=== PATIENT | female | born 1985 | race Hispanic/Latino ===

== ENCOUNTER 2018-02-13 20:13 | Emergency (ER) | payer OTHER ==
[2018-02-13] MEDS ORDERED: Sodium Chloride 0.9% 1,000 ML IV STA (21:18)
--- NOTE | 2018-02-13 21:41 | ED PDOC ---
HPI: SOB/CHF/COPD Time Seen by Provider: 02/13/18 20:35 Chief Complaint (Nursing): Shortness Of Breath Chief Complaint (Provider): Shortness Of Breath History Per: Patient History/Exam Limitations: no limitations Onset/Duration Of Symptoms: Days (x1 week) Additional Complaint(s): Patient is a 32 y/o female who presents to the ED complaining of shortness of breath for x1 week with associated pain and cough at end of inspiration. Pt states she had a panic attack earlier, but now she feels better. Patient additionally complains of chills, low fever, and body ache starting yesterday night. Patient reports taking Tylenol at 19:30. states she feels fine at this time. Past Medical History Reviewed: Historical Data, Nursing Documentation, Vital Signs Vital Signs: Last Vital Signs Temp 98.5 F 02/13/18 23:34 Pulse 90 02/13/18 23:34 Resp 16 02/13/18 23:34 BP 132/81 02/13/18 23:34 Pulse Ox 100 02/14/18 19:20 - Medical History PMH: Anxiety, Depression (tapering off of cymbalta), HTN (pre eclampsia) - Surgical History Surgical History: No Surg Hx - Family History Family History: States: Unknown Family Hx - Social History Current smoker - smoking cessation education provided: No Alcohol: None Drugs: Denies - Home Medications Home Medications: Ambulatory Orders Medication Instructions Recorded Albuterol HFA [Ventolin HFA 90 1 puff IH Q6 #1 inhaler 02/14/18 mcg/actuation (8 g)] Azithromycin [Z-Myron] 250 mg PO ASDIR #6 tab 02/14/18 - Allergies Allergies/Adverse Reactions: Allergies Allergy/AdvReac Type Severity Reaction Status Date / Time No Known Allergies Allergy Verified 02/13/18 20:24 Wells Criteria for PE - Wells Criteria for Pulmonary Embolism Clinical Signs and Symptoms of DVT: No P.E is #1 Diagnosis, or Equally Likely: No Heart Rate >100: No (initially was, now slowed down) Immobilization at least 3 days;Surgery previous 4 weeks: No Previous, objectively diagnosed PE or DVT: No Hemoptysis: No Malignancy w/treatment within 6 months, or palliative: No Total Score: 0 Review of Systems ROS Statement: Except As Marked, All Systems Reviewed And Found Negative Constitutional: Positive for: Fever (low), Chills Respiratory: Positive for: Cough, Shortness of Breath, Pleuritic Pain Musculoskeletal: Positive for: Back Pain (body ache) Physical Exam - Reviewed Nursing Documentation Reviewed: Yes Vital Signs Reviewed: Yes - Physical Exam Appears: Positive for: Non-toxic, No Acute Distress Head Exam: Positive for: ATRAUMATIC, NORMOCEPHALIC Skin: Positive for: Normal Color, Warm, Dry Eye Exam: Positive for: EOMI, Normal appearance, PERRL ENT: Positive for: Normal ENT Inspection Neck: Positive for: Normal, Painless ROM, Supple Cardiovascular/Chest: Positive for: Regular Rate, Rhythm. Negative for: Murmur Respiratory: Positive for: Normal Breath Sounds. Negative for: Respiratory Distress Gastrointestinal/Abdominal: Positive for: Normal Exam, Soft. Negative for: Tenderness Back: Positive for: Normal Inspection. Negative for: L CVA Tenderness, R CVA Tenderness Extremity: Positive for: Normal ROM. Negative for: Pedal Edema, Deformity Neurologic/Psych: Positive for: Alert, Oriented. Negative for: Motor/Sensory Deficits - Laboratory Results Result Diagrams: 02/13/18 21:55 02/13/18 21:55 - ECG O2 Sat by Pulse Oximetry: 100 (RA) Pulse Ox Interpretation: Normal Medical Decision Making Medical Decision Making: Time: 21:17 Initial Plan: body aches rule out flu, electrolyte abnormality CMP CBC w/ diff Chest x-ray Urine C&S Influenza A B Urinalysis 2315 Rapid flu negative. Labs reviewed and within normal limits. Chest x-ray shows no infiltrates. Patient with normalized pulse and states she is feeling much better. Patient to be discharged home. rpt pulse normal 3 am called pt back to inform her that she had bands in her blood. and needed to return for blood cultures, repeat bloodwork and possible admission. pt states she will return. ----- Scribe Attestation: Documented by Bello Sheets, acting as a scribe for Aracely Mendoza MD Provider Scribe Attestation: All medical record entries made by the Scribe were at my direction and personally dictated by me. I have reviewed the chart and agree that the record accurately reflects my personal performance of the history, physical exam, medical decision making, and the department course for this patient. I have also personally directed, reviewed, and agree with the discharge instructions and disposition. Disposition - Clinical Impression Clinical Impression: Body aches - Patient ED Disposition Is Patient to be Admitted: No Counseled Patient/Family Regarding: Studies Performed, Diagnosis, Need For Followup - Disposition Disposition: Routine/Home Disposition Time: 02:00 Condition: IMPROVED Additional Instructions: follow up with your primary doctor in 1-2 days return to the ED with any worsening or concerning symptoms Instructions: Generalized Weakness (DC) Forms: [employer] (M[place]ese)
[2018-02-13 22:02] LABS: BASO % 0.4 % (0.0-2.0); EOS % 0.3 % (0.0-4.0); HEMOGLOBIN 13.1 g/dL (12.0-16.0); LYMPH # 0.6 K/uL (1.0-4.3); LYMPH % 7.7 % (20.0-40.0); MEAN CELL VOLUME 88.7 fl (81.0-99.0); MEAN CORPUSCULAR HEMOGLOBIN 30.2 pg (27.0-31.0); MEAN CORPUSCULAR HGB CONC 34.1 g/dL (33.0-37.0); MEAN PLATELET VOLUME 9.1 fl (7.2-11.7); MONO # 0.4 K/uL (0.0-0.8); MONO % 5.7 % (0.0-10.0); NEUT # 6.4 K/uL (1.8-7.0); NEUT % 85.9 % (50.0-75.0); PLATELET COUNT 148 K/uL (130-400); RBC 4.34 Mil/uL (3.80-5.20); WHITE BLOOD COUNT 7.4 K/uL (4.8-10.8)
[2018-02-13 22:10] LABS: ALB/GLOB RATIO 1.5 (1.0-2.1); ALBUMIN 4.4 g/dL (3.5-5.0); ALT/SGPT 25 U/L (9-52); AST/SGOT 23 U/L (14-36); BLOOD UREA NITROGEN 14 mg/dl (7-17); CALCIUM 9.3 mg/dL (8.4-10.2); GFR AFRICAN-AMERICAN > 60; GFR NON-AFRICAN AMERICAN > 60
[2018-02-13 22:14] LABS: SQUAMOUS EPITHIAL < 1 /hpf (0-5); URINE BACTERIA RARE (<OCC); URINE BILIRUBIN NEGATIVE (NEGATIVE); URINE BLOOD NEGATIVE (NEGATIVE); URINE CLARITY CLEAR (Clear); URINE COLOR STRAW (YELLOW); URINE GLUCOSE (UA) NEG (Normal); URINE LEUKOCYTE ESTERASE NEG Leu/uL (Negative); URINE PROTEIN NEGATIVE (NEGATIVE); URINE UROBILINOGEN 0.2-1.0 mg/dL (0.2-1.0)
[2018-02-13 23:29] LABS: BANDS 4 % (0-2); LYMPHOCYTE 12 % (20-50); MONOCYTE 8 % (0-10); NEUTROPHIL 76 % (42-75); TOTAL CELLS COUNTED 100
[2018-02-13 23:30] LABS: PLATELET ESTIMATE NORMAL (NORMAL)
[2018-02-13 23:35] VITALS: BP 132/81; PULSE 90; RESP 16; TEMP 98.5
[2018-02-14 00:23] VITALS: O2SAT 100
== END 2018-02-13 23:35 | disposition home or self-care (01) ==
LOC: H.ER 20:13
DX: M79.1 Myalgia (principal); F41.0 Panic disorder [episodic paroxysmal anxiety]; F32.9 Major depressive disorder, single episode, unspecified
CPT/HCPCS: 71046; 80053; 81003; 81025; 85025; 87086; 87804; 96360; 99283; J7030

== ENCOUNTER 2018-02-14 08:28 | Emergency (ER) | payer OTHER ==
[2018-02-14 08:33] VITALS: BP 111/68; PULSE 89; TEMP 97.5; O2SAT 100
[2018-02-14 08:34] VITALS: BMI 24.1
[2018-02-14 09:39] LABS: VENOUS BLOOD GAS BASE EXCESS 1.7 mmol/L (0.0-2.0); VENOUS BLOOD GAS PCO2 51 mmHg (40-60); VENOUS BLOOD GAS PO2 22 mm/Hg (30-55); VENOUS BLOOD PH 7.35 (7.32-7.43)
[2018-02-14 09:55] LABS: BASO % 0.4 % (0.0-2.0); EOS % 0.5 % (0.0-4.0); HEMOGLOBIN 13.6 g/dL (12.0-16.0); LYMPH # 0.6 K/uL (1.0-4.3); LYMPH % 12.5 % (20.0-40.0); MEAN CELL VOLUME 88.3 fl (81.0-99.0); MEAN CORPUSCULAR HEMOGLOBIN 30.1 pg (27.0-31.0); MEAN CORPUSCULAR HGB CONC 34.1 g/dL (33.0-37.0); MONO # 0.3 K/uL (0.0-0.8); MONO % 7.3 % (0.0-10.0); NEUT # 3.7 K/uL (1.8-7.0); NEUT % 79.3 % (50.0-75.0); PLATELET COUNT 144 K/uL (130-400); RBC 4.53 Mil/uL (3.80-5.20); WHITE BLOOD COUNT 4.7 K/uL (4.8-10.8)
[2018-02-14 09:58] LABS: BLOOD UREA NITROGEN 12 mg/dl (7-17); GFR AFRICAN-AMERICAN > 60; GFR NON-AFRICAN AMERICAN > 60
--- NOTE | 2018-02-14 11:39 | ED PDOC ---
HPI: General Adult Time Seen by Provider: 02/14/18 08:45 Chief Complaint (Nursing): Abnormal Labs Chief Complaint (Provider): abnormal labs History Per: Patient History/Exam Limitations: no limitations Onset/Duration Of Symptoms: Days (x1) Current Symptoms Are (Timing): Still Present Additional Complaint(s): Alberto Pickard is a 32 year old female, with a past medical history of asthma and anxiety, who presents to the emergency department as a callback to return for a check up. Patient was seen yesterday for cough and shortness of breath ongoing for a couple of days. She had bloodwork and CXR done which came back normal. Bloodwork was unremarkable except for elevated bands. She was discharged with unremarkable work up but Bands came at 04:00 elevated so she was called in by Dr. Mendoza to return. She reports a loss of appetite for couple of days, intermittent difficulty breathing and cough but denies any chest pain, sore throat or fever. She denies any new complaints and since then has only used her albuterol pump intermittently. No further medical complaints. PMD: Radha Guzman Past Medical History Reviewed: Historical Data, Nursing Documentation, Vital Signs Vital Signs: Last Vital Signs Temp 97.5 F L 02/14/18 08:32 Pulse 89 02/14/18 08:32 Resp BP 111/68 02/14/18 08:32 Pulse Ox 100 02/14/18 13:09 - Medical History PMH: Anxiety, Asthma, Depression (tapering off of cymbalta), HTN (pre eclampsia) - Family History Family History: States: Unknown Family Hx - Social History Current smoker - smoking cessation education provided: No Alcohol: Social Drugs: Denies - Home Medications Home Medications: Ambulatory Orders Medication Instructions Recorded Albuterol HFA [Ventolin HFA 90 1 puff IH Q6 #1 inhaler 02/14/18 mcg/actuation (8 g)] Azithromycin [Z-Myron] 250 mg PO ASDIR #6 tab 02/14/18 - Allergies Allergies/Adverse Reactions: Allergies Allergy/AdvReac Type Severity Reaction Status Date / Time No Known Allergies Allergy Verified 02/13/18 20:24 Review of Systems ROS Statement: Except As Marked, All Systems Reviewed And Found Negative Constitutional: Positive for: Chills, Other (body aches). Negative for: Fever ENT: Negative for: Throat Pain Cardiovascular: Negative for: Chest Pain Respiratory: Positive for: Cough, Shortness of Breath (intermittent) Physical Exam - Reviewed Nursing Documentation Reviewed: Yes Vital Signs Reviewed: Yes - Physical Exam Appears: Positive for: No Acute Distress Head Exam: Positive for: ATRAUMATIC, NORMAL INSPECTION, NORMOCEPHALIC Skin: Positive for: Normal Color, Warm, Dry Eye Exam: Positive for: Normal appearance, EOMI, PERRL ENT: Positive for: Normal ENT Inspection Neck: Positive for: Painless ROM Cardiovascular/Chest: Positive for: Regular Rate, Rhythm. Negative for: Murmur Respiratory: Positive for: Normal Breath Sounds. Negative for: Respiratory Distress Gastrointestinal/Abdominal: Positive for: Normal Exam, Soft. Negative for: Tenderness Back: Positive for: Normal Inspection Extremity: Positive for: Normal ROM (upper and lower extremities). Negative for : Deformity, Swelling Neurologic/Psych: Positive for: Alert, Oriented. Negative for: Motor/Sensory Deficits - Laboratory Results Result Diagrams: 02/14/18 08:30 02/14/18 08:30 - ECG O2 Sat by Pulse Oximetry: 100 (RA) Pulse Ox Interpretation: Normal Medical Decision Making Medical Decision Making: Time: 08:45 Initial Impression: Acute bronchitis, flu-like illness r/o septicemia. Initial Plan: --VBG Shock Panel --BMP --CBC w/ differential --D Dimer --ESR --Blood culture --Rapid Strep Group A Antigen --Reevaluation -Reviewed previous labs and xray which were normal. 1300 Patient is feeling improved. Labs reviewed and unremarkable, including normal bands. Blood cultures pending. Patient is stable for discharge. ----- Scribe Attestation: Documented by Mathew Galeano, acting as a scribe for Melvin Blackwood MD. Provider Scribe Attestation: All medical record entries made by the Scribe were at my direction and personally dictated by me. I have reviewed the chart and agree that the record accurately reflects my personal performance of the history, physical exam, medical decision making, and the department course for this patient. I have also personally directed, reviewed, and agree with the discharge instructions and disposition. Disposition - Clinical Impression Clinical Impression: Flu-like symptoms, Bronchitis - Patient ED Disposition Is Patient to be Admitted: No Doctor Will See Patient In The: Office Counseled Patient/Family Regarding: Studies Performed, Diagnosis, Need For Followup - Disposition Referrals: Radha Guzman MD [Family Provider] - Disposition: Routine/Home Disposition Time: 13:06 Condition: GOOD Additional Instructions: Take your medications as instructed. Follow up with your PCP in 2-3 days. ALBERTO PICKARD, thank you for letting us take care of you today. Your provider was Melvin Blackwood MD and you were treated for CHECK UP. The emergency medical care you received today was directed at your acute symptoms. If you were prescribed any medication, please fill it and take as directed. It may take several days for your symptoms to resolve. Return to the Emergency Department if your symptoms worsen, do not improve, or if you have any other problems. Please contact your doctor or call one of the physicians/clinics you have been referred to that are listed on the Patient Visit Information form that is included in your discharge packet. Bring any paperwork you were given at discharge with you along with any medications you are taking to your follow up visit. Our treatment cannot replace ongoing medical care by a primary care provider outside of the emergency department. Thank you for allowing the [facility] team to be part of your care today. If you had an X-Ray or CT scan: A Radiologist will review the ED reading if any change in treatment is needed we will contact you. If you had a blood, urine, or wound culture: It will take several days for the results, if any change in treatment is needed we will contact you. If you had an STI test: It will take 48 hours for the results. Please call after 1 week if you have not heard back. Prescriptions: Albuterol HFA [Ventolin HFA 90 mcg/actuation (8 g)] 1 puff IH Q6 #1 inhaler Azithromycin [Z-Myron] 250 mg PO ASDIR #6 tab Instructions: Acute Bronchitis Forms: [employer] (Grenadian)
[2018-02-14 12:46] LABS: BANDS 2 % (0-2); LYMPHOCYTE 18 % (20-50); MONOCYTE 4 % (0-10); NEUTROPHIL 76 % (42-75); PLATELET ESTIMATE NORMAL (NORMAL); TOTAL CELLS COUNTED 100
== END 2018-02-14 13:33 | disposition home or self-care (01) ==
LOC: H.ER 08:28
DX: J20.9 Acute bronchitis, unspecified (principal); J11.1 Influenza due to unidentified influenza virus with other respiratory manifestations; F32.9 Major depressive disorder, single episode, unspecified; F41.9 Anxiety disorder, unspecified

== ENCOUNTER 2018-11-01 00:20 | Emergency (ER) | payer OTHER ==
[2018-11-01 00:20] VITALS: BMI 24.1
[2018-11-01 00:24] VITALS: RESP 16
[2018-11-01] MEDS ORDERED: Sodium Chloride 0.9% 1,000 ML IV STA ×3 (00:52→03:57)
[2018-11-01] MEDS ORDERED: Morphine 4 MG/ML VIAL ONE ×2 (01:06→02:50)
[2018-11-01 01:12] LABS: BASO # 0.1 K/uL (0.0-0.2); BASO % 0.7 % (0.0-2.0); EOS # 0.2 K/uL (0.0-0.7); EOS % 1.4 % (0.0-4.0); HEMOGLOBIN 12.6 g/dL (12.0-16.0); LYMPH # 2.6 K/uL (1.0-4.3); MEAN CELL VOLUME 88.9 fl (81.0-99.0); MEAN CORPUSCULAR HEMOGLOBIN 29.4 pg (27.0-31.0); MEAN CORPUSCULAR HGB CONC 33.1 g/dL (33.0-37.0); MEAN PLATELET VOLUME 8.7 fl (7.2-11.7); MONO # 0.7 K/uL (0.0-0.8); MONO % 4.3 % (0.0-10.0); NEUT # 12.5 K/uL (1.8-7.0); NEUT % 77.6 % (50.0-75.0); NRBC % 0.1 % (0.0-0.0); RBC 4.27 Mil/uL (3.80-5.20); RED CELL DISTRIBUTION WIDTH 13.5 % (11.5-14.5); WHITE BLOOD COUNT 16.1 K/uL (4.8-10.8)
[2018-11-01 01:15] LABS: PROTHROMBIN TIME 11.6 Seconds (9.8-13.1)
[2018-11-01 01:18] LABS: PARTIAL THROMBOPLASTIN TIME 30.1 Seconds (25.6-37.1)
[2018-11-01 01:19] LABS: ALB/GLOB RATIO 1.5 (1.0-2.1); ALBUMIN 4.1 g/dL (3.5-5.0); ALT/SGPT 32 U/L (9-52); AST/SGOT 39 U/L (14-36); BLOOD UREA NITROGEN 15 mg/dl (7-17); CALCIUM 8.9 mg/dL (8.4-10.2); GFR NON-AFRICAN AMERICAN > 60
--- NOTE | 2018-11-01 01:35 | ED PDOC ---
HPI: Abdomen Time Seen by Provider: 11/01/18 00:43 Chief Complaint (Nursing): Abdominal Pain Chief Complaint (Provider): Abdominal pain History Per: Patient History/Exam Limitations: no limitations Onset/Duration Of Symptoms: Hrs (2x) Current Symptoms Are (Timing): Still Present Severity: Moderate Location Of Pain/Discomfort: RLQ Additional Complaint(s): 32 year old female with a past medical history of ovarian cysts presents to the ED for an evaluation of acute right sided abdominal pain that started 2x hours prior to arrival. Patient reports having associated nausea, but denies vomiting. Patient states that the pain is similar to a gas pain. Patient states that this pain feels similar to a previously ruptured hemorrhagic ovarian cyst. Patient states that the pain is moderate-severe, and was about to pass out at home due to the pain. PMD: Radha Guzman MD Past Medical History Reviewed: Historical Data, Nursing Documentation, Vital Signs Vital Signs: Last Vital Signs Temp 97.9 F 11/01/18 00:21 Pulse 66 11/01/18 00:21 Resp 16 11/01/18 00:21 BP 89/64 L 11/01/18 00:21 Pulse Ox 100 11/01/18 00:21 HENRY Report Viewed: Yes - Medical History PMH: Anxiety, Asthma, Depression (tapering off of cymbalta), HTN (pre eclampsia) Other PMH: ovarian cysts - Surgical History Surgical History: Tonsillectomy - Family History Family History: States: No Known Family Hx - Social History Current smoker - smoking cessation education provided: No Alcohol: None Drugs: Denies - Home Medications Home Medications: Ambulatory Orders Medication Instructions Recorded Albuterol HFA [Ventolin HFA 90 1 puff IH Q6 #1 inhaler 02/14/18 mcg/actuation (8 g)] Azithromycin [Z-Myron] 250 mg PO ASDIR #6 tab 02/14/18 Dicyclomine [Bentyl] 20 mg PO Q12 PRN #20 tab 11/01/18 Ondansetron ODT [Zofran ODT] 4 mg PO Q6 PRN #8 odt 11/01/18 - Allergies Allergies/Adverse Reactions: Allergies Allergy/AdvReac Type Severity Reaction Status Date / Time No Known Allergies Allergy Verified 11/01/18 00:21 Review of Systems ROS Statement: Except As Marked, All Systems Reviewed And Found Negative Gastrointestinal: Positive for: Nausea, Abdominal Pain (right sided, gas-like pain, similar to paoin in the past with ruptured hemmorhagic ovarian cyst). Negative for: Vomiting Physical Exam - Reviewed Nursing Documentation Reviewed: Yes Vital Signs Reviewed: Yes - Physical Exam Appears: Positive for: Non-toxic, No Acute Distress, Uncomfortable Head Exam: Positive for: ATRAUMATIC, NORMOCEPHALIC Skin: Positive for: Normal Color, Warm, Dry Cardiovascular/Chest: Positive for: Regular Rate, Rhythm Respiratory: Positive for: Normal Breath Sounds Gastrointestinal/Abdominal: Positive for: Soft, Tenderness (mild right lower quadrant tenderness) Neurological/Psych: Positive for: Awake, Alert, Oriented (3x) - Laboratory Results Result Diagrams: 11/01/18 01:00 11/01/18 01:00 Lab Results: PT 11.6 Seconds (9.8-13.1) 11/01/18 01:00 INR 1.0 11/01/18 01:00 APTT 30.1 Seconds (25.6-37.1) 11/01/18 01:00 Total Bilirubin 0.6 mg/dl (0.2-1.3) 11/01/18 01:00 AST 39 U/L (14-36) H D 11/01/18 01:00 ALT 32 U/L (9-52) 11/01/18 01:00 Alkaline Phosphatase 60 U/L (38-126) 11/01/18 01:00 Total Protein 6.9 G/DL (6.3-8.2) 11/01/18 01:00 Albumin 4.1 g/dL (3.5-5.0) 11/01/18 01:00 Globulin 2.8 gm/dL (2.2-3.9) 11/01/18 01:00 Albumin/Globulin Ratio 1.5 (1.0-2.1) 11/01/18 01:00 - ECG O2 Sat by Pulse Oximetry: 100 (RA) Pulse Ox Interpretation: Normal - Critical Care Total Time (In Min): 60 Documented Critical Care: Time excludes all time spent performint seperately billable procedures Medical Decision Making Medical Decision Makin:43 Initial impression: 32 year old female with right lower quadrant abdominal pain, insetting of previous ovarian cysts. Initial plan: * US transvaginal * CMP * upreg * udip * CBC with differential * PT PTT * urinalysis * IV NS 1,000 ml IV 1,000 mls/hr * morphine 2 mg IVP once * zofran 4 mg IV * reevaluation 2:00 Patient complains of diarrhea and abdominal pain. Bentyl and CT abdomen and pelvis (IV contrast only) ordered. 2:45 Patient complains of persistent pain. 4 mg morphine ordered. 3:30 US pelvis read and reviewed by radiologist Findings: The uterus measures 8.3 x3.9x5.8 cm. Endometrium is normal in thickness measuring 5.2 mm. Normal cervical length measuring 3.6 cm. Unremarkable ovaries. Normal bilateral ovarian flow. Impression: Unremarkable exam. 3:40 CT abdomen and pelvis with IV contrast read and reviewed by radiologist COMMENTS: Fluid filled small bowels. Fluid-filled large bowels. Mild amount of free pelvic fluid is noted. The liver is of uniform attenuation without mass or defect. There is no intra or extrahepatic biliary ductal dilatation. The spleen is normal. The gallbladder is within normal limits. The pancreas is of normal contour and attenuation characteristics. There is no evidence of adrenal mass. Both kidneys demonstrate prompt and equal nephrograms. The kidneys are normal in size, shape and configuration. There is no evidence of renal or ureteral mass. No renal or ureteral calculi are identified. There is no hydroureter or hydronephrosis. No evidence for appendicitis. There is no bowel wall thickening. No evidence for small or large bowel obstruction. There is no evidence of intrinsic or extrinsic bladder mass. Images of the lung bases show no evidence of pleural or parenchymal mass. There are no pleural effusions. The bony structures are free of lytic or blastic lesions. IMPRESSION: Fluid filled small bowels. Fluid-filled large bowels. Mild amount of free pelvic fluid is noted. On reassessment, patient appears pale, has mildly depressed blood pressure; normal heart rate 6:23 On reassessment, patient reports marked improvement in symptoms Blood pressure has improved. Patient is stable for discharge home; instructed to follow up with PMD in 2-3 days, return precautions given. Diagnosis: Gastroenteritis ------ ScribeAttestation: Documented byCarmen Venegas, acting as a scribe for Jovan Patterson MD. Provider ScribeAttestation: All medical record entries made by the Scribe were at my direction and personally dictated by me. I have reviewed the chart and agree that the record accurately reflects my personal performance of the history, physical exam, medical decision making, and the department course for this patient. I have also personally directed, reviewed, and agree with the discharge instructions and disposition. Disposition - Clinical Impression Clinical Impression: Gastroenteritis - Disposition Disposition: Routine/Home Disposition Time: 06:24 Condition: STABLE Prescriptions: Dicyclomine [Bentyl] 20 mg PO Q12 PRN #20 tab PRN Reason: abdominal pain/diarrhea Ondansetron ODT [Zofran ODT] 4 mg PO Q6 PRN #8 odt PRN Reason: Nausea/Vomiting Instructions: Gastroenteritis (ED) Forms: [employer] (Thai)
[2018-11-01] MEDS ORDERED: Sodium Chloride 0.9% 50 ML IV ONE (02:31)
[2018-11-01] MEDS ORDERED: Iohexol 300 100 ML IJ ONE (02:31)
[2018-11-01] MEDS ORDERED: Morphine 4 MG/ML VIAL IVP ONE (04:00)
[2018-11-01] MEDS ORDERED: Simethicone 80 mg Chewtab PO STA (04:38)
[2018-11-01 06:25] VITALS: BP 102/62; PULSE 64; O2SAT 100
[2018-11-01 06:48] VITALS: TEMP 98.3
--- NOTE | 2018-11-01 11:18 | US ---
Date of service: 11/01/2018 HISTORY: right pelvic pain COMPARISON: None available. TECHNIQUE: Transabdominal FINDINGS: UTERUS: Measures 8.3 x 3.9 x 5.8 cm. Normal in size and appearance. No fibroid or other mass lesion seen. ENDOMETRIUM: Measures 5 mm in diameter. Unremarkable. CERVIX: No cervical abnormality identified. RIGHT OVARY: Measures 4.1 x 2.6 x 2.5 cm. No solid mass. Normal flow. LEFT OVARY: Measures 3.9 x 2.6 x 2.7 cm. No solid mass. Normal flow. FREE FLUID: No significant free fluid noted. OTHER FINDINGS: None. IMPRESSION: Unremarkable pelvic ultrasound.
--- NOTE | 2018-11-01 12:11 | CT ---
Date of service: 11/01/2018 PROCEDURE: CT Abdomen and Pelvis with contrast HISTORY: Abdominal pain, diarrhea COMPARISON: None. TECHNIQUE: Intravenous contrast dose: 90 cc Omnipaque 300. Radiation dose: Total exam DLP = 413.19 mGy-cm. This CT exam was performed using one or more of the following dose reduction techniques: Automated exposure control, adjustment of the mA and/or kV according to patient size, and/or use of iterative reconstruction technique. FINDINGS: LOWER THORAX: Unremarkable. LIVER: Unremarkable. No gross lesion or ductal dilatation. GALLBLADDER AND BILE DUCTS: Unremarkable. PANCREAS: Unremarkable. No gross lesion or ductal dilatation. SPLEEN: Unremarkable. ADRENALS: Unremarkable. No mass. KIDNEYS AND URETERS: Unremarkable. No hydronephrosis. No solid mass. VASCULATURE: Unremarkable. No aortic aneurysm. No atherosclerotic calcification or mural plaque present. BOWEL: Fluid-filled colon and small bowel consistent with diarrheal state. APPENDIX: Normal appendix. PERITONEUM: Trace free fluid in the cul-de-sac. No free air identified. LYMPH NODES: Unremarkable. No enlarged lymph nodes. BLADDER: Unremarkable. REPRODUCTIVE: Unremarkable. BONES: No acute fracture. OTHER FINDINGS: None. IMPRESSION: Fluid-filled colon/small bowel consistent with diarrheal state. No evidence of colitis, enteritis, obstruction. Trace free fluid in the cul-de-sac. No free air identified. Concordant results (preliminary interpretation) provided by [facility]. Procedure Completed: 02:43. Preliminary Report: Interpreted and electronically signed: 03:44. Final Interpretation: 12:08.
== END 2018-11-01 06:40 | disposition home or self-care (01) ==
LOC: H.ER 00:20
DX: K52.9 Noninfective gastroenteritis and colitis, unspecified (principal); J45.909 Unspecified asthma, uncomplicated; Z86.59 Personal history of other mental and behavioral disorders; I10 Essential (primary) hypertension; Z79.899 Other long term (current) drug therapy
CPT/HCPCS: 74177; 76856; 80053; 81025; 85025; 85610; 85730; 96361; 96374; 96375; 96376; 99284; J1885; J2270; J2405; J7030; Q9967